=== PATIENT | female | born 1950 | race Caucasian/White ===

== ENCOUNTER 2016-09-11 12:57 | Emergency (ER) | payer MEDICAID ==
[~2016-09-11] VITALS: Ht 157.5 cm; Wt 73.9 kg
--- NOTE | 2016-09-11 13:00 | NUR ---
Patient to ER bed 08 to gown for evaluation. Side rails up. Report given to Adam
--- NOTE | 2016-09-11 13:15 | NUR ---
ER Dr. Guadarrama at bedside examining patient.
--- NOTE | 2016-09-11 13:23 | NUR ---
Assumed care of patient, here for headache, language barrier norwegian speaking.
--- NOTE | 2016-09-11 13:33 | NUR ---
Pt has been madee aware of of Md Guadarrama plan of care, no CT scan will be done. Medicating for discomfort for headache. Pt agrees with MD Guadarrama plan of care.
[2016-09-11] MEDS ORDERED: LORazepam 1 MG TABLET SL ONE (14:00)
[2016-09-11] MEDS ORDERED: KETOROLAC TROMETHAMINE 60 MG/2 ML VIAL IM ONE (14:00)
[2016-09-11 14:30] VITALS: BP_SYST 129
--- NOTE | 2016-09-11 14:31 | NUR ---
Patient given written and verbal discharge instructions and verbalizes understanding. ER MD discussed with patient the results and treatment provided. Patient in stable condition. ID arm band removed. Patient educated on pain management and to follow up with PMD. Pain Scale [1]. Opportunity for questions provided and answered.
== END 2016-09-11 14:30 | disposition home or self-care (01) ==
LOC: SED 13:11
DX: G43.909 Migraine, unspecified, not intractable, without status migrainosus (principal); E11.9 Type 2 diabetes mellitus without complications; I10 Essential (primary) hypertension; E78.00 Pure hypercholesterolemia, unspecified
CPT/HCPCS: 96372; 99283; J1885

== ENCOUNTER 2016-10-12 11:24 | Emergency (ER) | payer MEDICAID ==
[~2016-10-12] VITALS: Ht 157.5 cm; Wt 72.6 kg
[2016-10-12 11:25] VITALS: BP_SYST 154
[2016-10-12 14:55] VITALS: BP_SYST 148
== END 2016-10-12 14:55 | disposition home or self-care (01) ==
LOC: SED 11:24
DX: T17.228A Food in pharynx causing other injury, initial encounter (principal); J02.9 Acute pharyngitis, unspecified; I10 Essential (primary) hypertension; E11.9 Type 2 diabetes mellitus without complications; E78.00 Pure hypercholesterolemia, unspecified; Z90.49 Acquired absence of other specified parts of digestive tract; X58.XXXA Exposure to other specified factors, initial encounter; Y93.89 Activity, other specified; Y92.89 Other specified places as the place of occurrence of the external cause; Y99.8 Other external cause status
CPT/HCPCS: 74220-TC; 99283